=== PATIENT | male | born 2000 | race Caucasian/White ===

== ENCOUNTER 2021-03-10 18:16 | Emergency (ER) | payer OTHER ==
[~2021-03-10] VITALS: Ht 182.9 cm; Wt 77.1 kg
[~2021-03-10 18:16] MED LIST: LORA10ER PO; MINO100 PO; Norco 5-325 Ta1 EACH PO; RXCODACET PO
== END 2021-03-10 20:38 | disposition home or self-care (01) ==
LOC: ER 18:16
DX: R51.9 Headache, unspecified (principal)
CPT/HCPCS: 99283; J0780; J1200; J7030